=== PATIENT | male | born 1995 | race Caucasian/White ===

== ENCOUNTER 2017-01-14 18:41 | Emergency (ER) | payer MEDICAID ==
[2017-01-14] MEDS ORDERED: Acetaminophen/HYDROcodone 325-5 MG Tab PO ONE (18:57)
[2017-01-14] MEDS ORDERED: Ondansetron 4 MG Tab.DIS PO ONE (18:59)
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
[2017-01-14] MEDS ORDERED: Diphtheria,Pertussis(Acell),Tetanus Vaccine 0.5 ML Syringe IM ONE (19:16)
[2017-01-14] MEDS ORDERED: ceFAZolin 1 GM Vial IVPUSH ONE (21:08)
[2017-01-14] MEDS ORDERED: Ondansetron 4 MG/2 ML SDV IVPUSH ONE (21:09)
[2017-01-14] MEDS ORDERED: Take Home: Acetaminophen/HYDROcodone 325-5 MG, 5 Tab Pack PO ONE (22:07)
[2017-01-14] MEDS ORDERED: Take Home: Ondansetron 4 MG Tab.DIS, 2 Tab Pack PO ONE (22:08)
[2017-01-15 00:34] VITALS: BP 146/79
== END 2017-01-14 22:31 | disposition home or self-care (01) ==
LOC: VM.ED 18:41
DX: S02.82XB Fracture of other specified skull and facial bones, left side, initial encounter for open fracture (principal); S02.40DB Maxillary fracture, left side, initial encounter for open fracture; S01.81XA Laceration without foreign body of other part of head, initial encounter; Z23 Encounter for immunization; Z88.2 Allergy status to sulfonamides; Y04.0XXA Assault by unarmed brawl or fight, initial encounter; Y92.009 Unspecified place in unspecified non-institutional (private) residence as the place of occurrence of the external cause
CPT/HCPCS: 12011; 70486; 90471; 90715; 96374; 96375; 99284; A9270; J0690; J2405

== ENCOUNTER 2021-06-28 21:10 | Emergency (ER) | payer BC, MEDICAID ==
[2021-06-28] MEDS ORDERED: cefTRIAXone 1 GM, Lidocaine 1% 2.1 ML IM ONE ×2 (21:33)
[2021-06-28] MEDS ORDERED: Ketorolac 30 MG/ML SDV IM ONE (21:34)
--- NOTE | 2021-06-28 21:40 | EDM.PDOC ---
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 Neurological History: Reports: None Hematologic History: Reports: None - Past Surgical History Head Surgeries/Procedures: Reports: None HEENT Surgical History: Reports: None Cardiovascular Surgical History: Reports: None GI Surgical History: Reports: None Social & Family History - Family History Family Medical History: No Pertinent Family History ED ROS GENERAL - Review of Systems Review Of Systems: Comprehensive ROS is negative, except as noted in HPI. Constitutional: Reports: No Symptoms HEENT: Reports: Dental Pain Respiratory: Reports: No Symptoms Cardiovascular: Reports: No Symptoms Endocrine: Reports: No Symptoms GI/Abdominal: Reports: No Symptoms : Reports: No Symptoms Musculoskeletal: Reports: No Symptoms Skin: Reports: No Symptoms Neurological: Reports: No Symptoms Psychiatric: Reports: No Symptoms Hematologic/Lymphatic: Reports: No Symptoms Immunologic: Reports: No Symptoms ED EXAM, GENERAL - Physical Exam Exam: See Below Exam Limited By: No Limitations General Appearance: Alert, WD/WN, No Apparent Distress Course - Orders/Labs/Meds Orders: Active Orders 24 hr Category Date Time Status Ketorolac [Toradol] Med 06/28/21 21:34 Once 30 mg IM ONETIME ONE Medication Orders Ketorolac Tromethamine (Ketorolac 30 Mg/Ml Sdv) 30 mg IM ONETIME ONE Stop: 06/28/21 21:35 Meds: Medications Generic Name Dose Route Start Last Admin Trade Name Freq PRN Reason Stop Dose Admin Ketorolac Tromethamine 30 mg 06/28/21 21:34 Ketorolac 30 Mg/Ml Sdv IM 06/28/21 21:35 ONETIME ONE Discontinued Medications Generic Name Dose Route Start Last Admin Trade Name Mariella PRN Reason Stop Dose Admin Ceftriaxone Sodium 1 gm/ 0 gm 06/28/21 21:33 Lidocaine HCl 2.1 ml IM 06/28/21 21:34 ONETIME ONE Departure - Departure Time of Disposition: 21:40 Disposition: Home, Self-Care 01 Condition: Good Clinical Impression: Dental abscess - Discharge Information *PRESCRIPTION DRUG MONITORING PROGRAM REVIEWED*: Not Applicable *COPY OF PRESCRIPTION DRUG MONITORING REPORT IN PATIENT BRENNEN: Not Applicable Instructions: Dental Abscess, [id number], Amoxicillin capsules or tablets Forms: ED Department Discharge Additional Instructions: 1. rest 2. increase your water intake 3. Take all antibiotics as prescribed even if feeling better 4. Take a probiotic while on antibiotics to help promote healthy GI motility 5. Activity and diet as tolerated 6. Can use Ibuprofen and tylenol for any fever or discomfort 7. Follow up with your PCP or return if symptoms progress or worsen 8. Education provided to you regarding your illness, probiotics, antibiotic prescribed 9. Call with any questions or concerns 10. Need to follow up with Dentist within one week for further medical management - My Orders Last 24 Hours: My Active Orders 06/28/21 21:34 Ketorolac [Toradol] 30 mg IM ONETIME ONE - Assessment/Plan Last 24 Hours: My Active Orders 06/28/21 21:34 Ketorolac [Toradol] 30 mg IM ONETIME ONE Assessment:: 1. dental abscess 2. dental pain Plan: 1. rocephin IM in the ER given 2. toradol IM given in the ER 3. Script for amoxicillin sent with patient 4. Patient and nursing staff was updated regarding the plan of care 5. Education provided the patient regarding activity, diet, rest, [id number] medication modalities, and follow-up care was provided 6. Patient and family are agreeable to the above plan of care 7. All questions and concerns were addressed with the patient and family prior to discharge
[2021-06-28 23:21] VITALS: BP 134/72; PULSE 73
== END 2021-06-28 22:15 | disposition home or self-care (01) ==
LOC: VM.ED 21:10
DX: K04.7 Periapical abscess without sinus (principal); Z88.2 Allergy status to sulfonamides
CPT/HCPCS: 96372; 99282; 99283; J0696; J1885